=== PATIENT | female | born 1990 | race Caucasian/White ===

== ENCOUNTER → 2018-05-28 16:13 | Outpatient (CLI) | payer OTHER, SELFPAY | PROVIDERS: Visit Provider Obstetrics & Gynecology | DX: R30.0 Dysuria (principal); M54.9 Dorsalgia, unspecified; R10.2 Pelvic and perineal pain | CPT/HCPCS: 87086 ==

== ENCOUNTER → 2018-08-17 17:20 | Outpatient (CLI) | payer OTHER, SELFPAY | PROVIDERS: Visit Provider Urology | DX: N39.0 Urinary tract infection, site not specified (principal) | CPT/HCPCS: 87086; 87088 ==

== ENCOUNTER 2019-08-05 21:39 | Emergency (ER) | payer OTHER, SELFPAY ==
[2018-11-12 17:19] VITALS: BMI 31.8
[2019-08-05 21:40] VITALS: BP 154/104; PULSE 98; RESP 18; TEMP 36.9; O2SAT 100; BMI 35.5
--- NOTE | 2019-08-05 22:05 | ED.DCSUM_ITS ---
- ER Visit Summary Date of Service: 08/05/19 Chief Complaint: Hematuria and dysuria status post urethral biopsy History of Present Illness: The patient is a 28 F who self caths herself. She has had recent atypical cells so the [facility] urology department did a biopsy on Thursday. She had a catheter in for 2 days and then removed it since then she has had gross hematuria and self cathing herself. She denies any fever or chills. No purulent urine. Mild dysuria. She has had a history of multiple symptoms of dysuria in the past with many negative urine cultures. Physical Examination: Young female no acute distress vital signs stable afebrile. H EENT exam unremarkable. Lungs clear to auscultation. Heart regular rhythm no murmur. Abdomen soft nontender. Normal bowel sounds no peritoneal signs. Extremities moves all 4. Calves nontender. Neurologically she is awake alert with no focal motor deficits. 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 Treatment Plan: [] Disposition: Discharge Impression: [] This note was generated with [employer] dictation software. It may contain incorrect words, spelling, and punctuation that were not noted in review of the chart prior to signing ED Disposition - Plan for ED Patient: Referrals: [facility] Doctor,Out of [Primary Care Provider] -
[2019-08-05 23:42] LABS: Mucous, Urine 0 SEEN /hpf (<or=2+)
[2019-08-05 23:46] LABS: Glucose, Dipstick Normal (Normal); Ketone-Dipstick Negative (Negative); Leukocyte Esterase-Dipstick 500 /ul (Negative); Nitrite-Dipstick Negative (Negative); Occult Blood-Urine 250 /ul (Negative); Protein-Dipstick 30 mg/dl (Negative); Urine Bilirubin Dipstick Negative (Negative); Urine Clarity Cloudy (Clear); Urine Urobilinogen Normal (Normal)
[2019-08-05 23:50] LABS: Color, Urine SEE COMMENT BELOW (Yellow)
[2019-08-05 23:55] LABS: Red Blood Cells-Urine > 100 SEEN /hpf (0-5); Squamous Epithelial Cells - UA 0-5 SEEN /hpf (5-10)
[2019-08-05 23:56] LABS: White Blood Cells 25-50 SEEN /hpf (0-5)
[2019-08-05 23:57] LABS: Bacteria 3+ /hpf (None Seen)
[2019-08-05 23:58] LABS: Internal QC Validated? YES +Cl - CLEAR BKGD; Pregnancy, Urine Negative Negative
--- NOTE | 2019-08-06 00:07 | DCINST.ED_ITS ---
ED Disposition - Plan for ED Patient: Disposition: Home or Assisted Living Instructions: Bladder Infection, Female (Adult) Prescriptions: Cephalexin [Keflex] 500 mg PO Q6 #30 cap Prescription Printed Referrals: [facility] Doctor,Out of [NON-STAFF] - As soon as possible Additional Instructions: Urine has white cells and bacteria consistent with a possible urinary tract infection. You have had this multiple times in the past and many times her cultures handle turner to be negative. We will start to treat you as a possible urinary tract infection on Keflex 4 times a day for 1 week. And await the culture results. Follow-up with your urologist. They can evaluate the culture results and decide if you should continue on antibiotics.
[2019-08-06 00:25] VITALS: BP 148/92; PULSE 90; RESP 14; O2SAT 98
[2019-08-06] MEDS: Cephalexin 250 MG Capsule 500 MG PO (00:34)
[2019-08-06 00:35] VITALS: BP 134/79; PULSE 106; RESP 14; TEMP 37.9; O2SAT 100
== END 2019-08-06 00:36 | disposition home or self-care (01) ==
PROVIDERS: Emergency Provider Emergency Medicine
DX: N39.0 Urinary tract infection, site not specified (principal); R30.0 Dysuria
CPT/HCPCS: 81001; 81025; 87086; 87088; 87186; 99284; P9612

== ENCOUNTER 2020-06-18 10:39 | Emergency (ER) | payer BC, SELFPAY ==
[2020-06-18 10:39] VITALS: BP 137/90; PULSE 93; RESP 17; TEMP 36.3; O2SAT 98; BMI 37.0
--- NOTE | 2020-06-18 11:05 | CT_ITS ---
STUDY: CT BRAIN WITHOUT CONTRAST REASON FOR EXAM: Female, 29 years old. HEADACHE X 6 DAYS, TROUBLE TALKING, ?UTI RADIATION DOSAGE (If Supplied By Facility): CTDIvol = ( 44.99 ) mGy, DLP = ( 812.98 ) mGycm TECHNIQUE: Transaxial CT imaging of the brain was performed without administration of intravenous contrast material. Individualized dose optimization techniques were used for this CT. COMPARISON: Comparison is made with prior study dated 06/12/2010. FINDINGS: Normal soft tissue structures. Normal calvarium. Normal size ventricles and extra-axial spaces for the patient''s age. Normal white matter tracts of the cerebral hemispheres. Normal basal ganglia and thalami. Normal brainstem. Normal cerebellum. There is no intracranial hemorrhage. There are no findings of an acute ischemic infarction. Opacification of the right maxillary sinus. Mild mucosal thickening of the left maxillary sinus. Partial opacification of the ethmoid sinuses bilaterally. CT/Brain/Head without Contrast IMPRESSION: Sinusitis. Electronically Signed: Kali Kaba, at 12:59 EDT , Service support ,
--- NOTE | 2020-06-18 11:06 | EKG12_ITS ---
Test Reason : Blood Pressure : / mmHG Vent. Rate : 077 BPM Atrial Rate : 077 BPM P-R Int : 162 ms QRS Dur : 074 ms QT Int : 356 ms P-R-T Axes : 048 041 022 degrees QTc Int : 402 ms Normal sinus rhythm Normal ECG Confirmed by OSMAN MYERS, LUCRECIA ([id number]), scientific publications editor MARBELLA SHANNON ([id number]) on 06/19/2020 9:27:26 AM Referred By: SAGE Confirmed By:LUCRECIA BREWER MD
--- NOTE | 2020-06-18 11:06 | ED.VIS.GEN ---
History of Present Illness Chief Complaint: Headache Onset: Weeks - 1 Context: Gradual Onset Timing: Continuous, Waxes and wanes Quality: aching Location: bitemporal Current Severity: Moderate Maximum Severity: Moderate Worsened by: light Relieved by: nothing Narrative: Patient presenting with multiple complaints. She states for the past 4 weeks or so she has had menorrhagia, she has been to the [facility], they put her on control pills, she stopped taking it about 2 weeks ago and felt like since then the bleeding has improved however still worse/more than a typical menstruation for her, they catherine her blood about 1 week ago to make sure she was not anemic and check her thyroid and she states those test ended up okay. She has been having bilateral bitemporal headaches for like throbbing, retro-orbital, associated with blurry vision, nausea, photophobia, trouble mentating and thinking and sometimes trouble speaking, for about the past week. No thunderclap onset, gradual. She has never had headaches like this before. Denies any focal neurologic symptoms aside from the ones listed above. No arm numbness or weakness. No falls or injuries to her head recently. No near syncopal events. She has Fowlers syndrome and self caths in order to empty her bladder, has been having suprapubic pressure for the last several days, with bladder spasms and is concerned maybe she has another infection. She has a history of recurrent ones due to self cathing. She denies any new pains in her back. - Past Medical History (1) Lemos's syndrome Status: Chronic (2) Asthma Status: Chronic Past Medical History - Allergies and Home Meds Allergies/Adverse Reactions: Allergies avocado Allergy (Verified 06/18/20 10:39) Anaphylaxis the food Primary Care Physician: Chery Lester MD [Primary Care Provider] - Surgical History: - - c/s Smoking Status: Never smoker - Family History Maternal Family History: Reports: - - polysystic kidney disease in mother and grandmother Review of Systems General: Reports: Malaise. Denies: Chills, Fever, Sweats Eyes: Reports: Blurred Vision - bilaterally, - - Photophobia. Denies: Diplopia ENT: Denies: Bilateral ear pain, Rhinorrhea, Sore throat Cardiovascular: Denies: Chest pain, Palpitations Respiratory: Denies: Dyspnea, Cough, Dyspnea on exertion Gastrointestinal: Reports: Abdominal pain, Nausea. Denies: Vomiting, Diarrhea, Melena, Hematochezia Genitourinary: Denies: Dysuria, Hematuria, Frequency Musculoskeletal: Denies: Neck pain, Back pain, Swelling, Extremity Pain Skin: Denies: Rash, Wounds Neurological: Reports: Headache. Denies: Weakness, Numbness Physical Exam Vital Signs/Narrative: Vital Signs Temp Pulse Resp BP Pulse Ox 06/18/20 10:39 97.3 F L 93 17 137/90 H 98 Inital Vital Signs reviewed: Yes General: Well nourished, Well developed, Obese, No Acute Distress Head: Normocephalic, Atraumatic Eyes: Perrl, EOMI ENT: Moist mucous membranes, No rhinorrhea Neck: Supple, Nontender, No lymphadenopathy Cardiovascular: Regular rate, Regular rhythm, No murmurs Respiratory: No distress, CTA bilaterally, Chest nontender Abdomen: Soft, Nontender, Nondistended, Normal bowel sounds Back: Nontender, Normal Inspection. Negative for: CVA tenderness Extremities: Nontender, No edema Skin: Normal color, No rash, No Trauma Neurological: Alert, Oriented x3, Cranial nerves II-XII grossly intact, Normal Strength, Normal Sensation, Normal Gait, - - NIHSS 0. No aphasia. No dysarthria. Psychological: Normal affect, Normal Mood Diagnostic/Tx/Re-eval Impressions Brain CT 06/18/20 11:05 IMPRESSION: Sinusitis. Electronically Signed: Kali Pacogissellesilvestre, at 12:59 EDT , Service support , 06/18/20 11:05 CT Brain [Brain/Head without Contrast] [CT] Stat Laboratory Results 06/18/20 06/18/20 06/18/20 11:11 11:11 11:42 WBC 7.6 RBC 4.18 L Hgb 11.7 L Hct 36.4 L MCV 87.1 MCH 28.0 MCHC 32.1 RDW Std Deviation 45.2 H RDW Coeff of Parul 14.4 Plt Count 354 MPV 10.4 Immature Gran % (Auto) 0.300 Neut % (Auto) 60.3 Lymph % (Auto) 27.6 [place] % (Auto) 4.9 Eos % (Auto) 6.6 H Baso % (Auto) 0.3 Absolute Neuts (auto) 4.6 Absolute Lymphs (auto) 2.10 Nucleated RBC % 0 Sodium 139 Potassium 4.5 Chloride 109 H Carbon Dioxide 24.0 Anion Gap 6 BUN 14 Creatinine 1.11 H Estim Creat Clear Calc 69.38 Est GFR (MDRD) Af Amer 74 Est GFR (MDRD) Non-Af 61 BUN/Creatinine Ratio 12.6 Glucose 104 Calcium 9.2 Urine Color Urine Clarity Urine pH Ur Specific [place] Urine Protein Urine Glucose (UA) Urine Ketones Urine Occult Blood Urine Nitrite Urine Bilirubin Urine Urobilinogen Ur Leukocyte Esterase Urine RBC Urine WBC Ur Squamous Epith Cells Urine Bacteria Urine Mucus Urine Test Negative 06/18/20 11:42 WBC RBC Hgb Hct MCV MCH MCHC RDW Std Deviation RDW Coeff of Parul Plt Count MPV Immature Gran % (Auto) Neut % (Auto) Lymph % (Auto) [place] % (Auto) Eos % (Auto) Baso % (Auto) Absolute Neuts (auto) Absolute Lymphs (auto) Nucleated RBC % Sodium Potassium Chloride Carbon Dioxide Anion Gap BUN Creatinine Estim Creat Clear Calc Est GFR (MDRD) Af Amer Est GFR (MDRD) Non-Af BUN/Creatinine Ratio Glucose Calcium Urine Color Yellow Urine Clarity Clear Urine pH 6.0 Ur Specific [place] 1.015 Urine Protein Negative Urine Glucose (UA) Normal Urine Ketones Negative Urine Occult Blood Negative Urine Nitrite Negative Urine Bilirubin Negative Urine Urobilinogen Normal Ur Leukocyte Esterase 25 H Urine RBC 0 SEEN Urine WBC 0-5 SEEN Ur Squamous Epith Cells 0 SEEN Urine Bacteria 0 SEEN Urine Mucus 0 SEEN Urine Test - Medical Decision Making With CT showing sinusitis, it is possible this is causing her headaches. Her headache features are more like migraines. She was treated here with IV fluids, Reglan, Toradol and her headache resolved. The rest of her tests look good, no sign of urine infection, but we will treat her with an antibiotic empirically to see if that helps her sinusitis/headache anyway. Her blood counts are stable at this time she does not require blood transfusion, and advised to follow-up with her para professional with regards to her menorrhagia. ED Disposition - Plan for ED Patient: Disposition: Home or Assisted Living Diagnosis: Sinus headache, Sinusitis, Menorrhagia Instructions: ED Headache Sinus, ED Sinusitis Antibiotic Treatment Prescriptions: Amox/Clavulanate Tablet [Augmentin Tablet] 875 mg PO Q12H #14 tab Transmission Status: Pending to [facility] Metoclopramide [Reglan] 10 mg PO Q6H PRN #15 tab PRN Reason: Headache or nausea Transmission Status: Pending to [facility] Referrals: Chery Lester MD [Primary Care Provider] - 1 Week if not improving Gricelda Ryan MD [STAFF PHYSICIAN] - 1 Week if not improving
[2020-06-18 11:28] LABS: Absolute Neutrophil Count 4.6 X10^3/uL (2.0-7.7); Basophil# 0.02 X10^3/uL; Basophil% 0.3 % (0-1); Eosinophils% 6.6 % (0-5); Hematocrit 36.4 % (37-47); Hemoglobin 11.7 g/dL (12.0-15.0); Lymphocyte % 27.6 % (19-41); Mean Corp Hgb Conc 32.1 g/dL (32-36); Mean Corpuscular Volume 87.1 fL (81-99); Mean Platelet Vol. 10.4 fl (6.2-12.0); Monocyte# 0.37 X10^3/uL; Monocyte% 4.9 % (0-10); NRBC Flagged by Analyzer 0 % (0-5); Neutrophil # 4.59 X10^3/uL (2.7-7.7); Neutrophil % 60.3 % (47-70); Platelet Count 354 K/mm3 (150-450); RBC Distribution Width CV 14.4 % (11.6-14.6); RBC Distribution Width SD 45.2 fl (35.1-43.9); Red Blood Count 4.18 M/mm3 (4.2-5.4); White Blood Count 7.6 K/mm3 (4.4-11.0)
[2020-06-18 11:45] LABS: Anion Gap 6 (5-15); BUN 14 mg/dL (7-18); BUN/Creat Ratio 12.6 RATIO (10-20); Calcium,Total 9.2 mg/dL (8.5-10.1); Chloride 109 mmol/L (98-107); Creatinine, Serum 1.11 mg/dL (0.55-1.02); EST Glomerular Filtration Rate 61 mL/min (>60); Est Glom Filt Rate - Afr Amer 74 mL/min (>60); Estimated Creatinine Clearance 69.38 ml/min; Glucose 104 mg/dL (74-106); Potassium 4.5 mmol/L (3.5-5.1); Sodium Level 139 mmol/L (136-145)
[2020-06-18 11:50] LABS: Bacteria 0 SEEN /hpf (None Seen); Mucous, Urine 0 SEEN /hpf (<or=2+); Red Blood Cells-Urine 0 SEEN /hpf (0-5); Squamous Epithelial Cells - UA 0 SEEN /hpf (5-10)
[2020-06-18 11:56] LABS: Color, Urine Yellow (Yellow); Glucose, Dipstick Normal (Normal); Ketone-Dipstick Negative (Negative); Leukocyte Esterase-Dipstick 25 /ul (Negative); Nitrite-Dipstick Negative (Negative); Occult Blood-Urine Negative /ul (Negative); Protein-Dipstick Negative (Negative); Specific Gravity, Urine 1.015 (1.002-1.030); Urine Bilirubin Dipstick Negative (Negative); Urine Clarity Clear (Clear); Urine Urobilinogen Normal (Normal)
[2020-06-18 11:59] LABS: Internal QC Validated? YES +Cl - CLEAR BKGD; Pregnancy, Urine Negative Negative
[2020-06-18] MEDS: Ketorolac 30 MG/ML Syringe 15 MG IV (12:11)
[2020-06-18] MEDS: Metoclopramide 10 MG/2 ML Vial 5 MG IV (12:12)
[2020-06-18 12:21] LABS: White Blood Cells 0-5 SEEN /hpf (0-5)
[2020-06-18 14:12] VITALS: BP 113/75; RESP 17
== END 2020-06-18 14:13 | disposition home or self-care (01) ==
PROVIDERS: Emergency Provider Emergency Medicine; PCP Internal Medicine
DX: J32.9 Chronic sinusitis, unspecified (principal); N92.0 Excessive and frequent menstruation with regular cycle; N32.89 Other specified disorders of bladder; J45.909 Unspecified asthma, uncomplicated; E66.9 Obesity, unspecified; Z68.37 Body mass index [BMI] 37.0-37.9, adult; Z87.440 Personal history of urinary (tract) infections
CPT/HCPCS: 70450; 80048; 81001; 81025; 85025; 93005; 96361; 96374; 96375; 99283; J7040; A4216

== ENCOUNTER → 2020-06-24 09:37 | Outpatient (CLI) | payer BC, SELFPAY ==
[2020-06-18 10:39] VITALS: BMI 37.0
== END ==
PROVIDERS: PCP Internal Medicine; Referring Provider Nurse Practitioner Family; Visit Provider Nurse Practitioner Family
DX: R06.02 Shortness of breath (principal)
CPT/HCPCS: 87635; 94799; U0003

== ENCOUNTER 2020-06-25 14:55 | Emergency (ER) | payer BC, SELFPAY ==
[2020-06-25 14:56] VITALS: BP 128/78; PULSE 94; RESP 18; TEMP 36.3; O2SAT 100; BMI 37.7
--- NOTE | 2020-06-25 15:29 | EKG12_ITS ---
Test Reason : Blood Pressure : / mmHG Vent. Rate : 075 BPM Atrial Rate : 075 BPM P-R Int : 164 ms QRS Dur : 090 ms QT Int : 382 ms P-R-T Axes : 053 032 021 degrees QTc Int : 426 ms Normal sinus rhythm Normal ECG Confirmed by REGINO MYERS, SUSHANT ([id number]), writer editor MARBELLA SHANNON ([id number]) on 06/28/2020 11:19:12 AM Referred By: RUBEN Confirmed By:SUSHANT LACY MD
--- NOTE | 2020-06-25 16:27 | RAD_ITS ---
STUDY: X-RAY CHEST REASON FOR EXAM: Female, 29 years old. SOB TECHNIQUE: Single AP portable view of the chest. COMPARISON: 04/15/2016 FINDINGS: The lungs are clear and expanded. There is no demonstrated pleural abnormality. Normal size heart. Normal mediastinum and day. Normal visualized pulmonary arteries. Normal visualized aortic arch and descending thoracic aorta. Normal visualized thoracic spine. Normal visualized ribs, clavicles, and shoulders. There is no demonstrated abnormality of the visualized soft tissue structures of the upper abdomen. RAD/Chest 1 View (Portable) IMPRESSION: Normal x-ray examination of the chest. Electronically Signed: Kiran Pearce MD at 17:10 EDT Tel , Service support ,
[2020-06-25 16:28] VITALS: BP 118/74; PULSE 84; RESP 18; TEMP 36.6; O2SAT 97
--- NOTE | 2020-06-25 16:29 | ED.DCSUM_ITS ---
History of Present Illness Chief Complaint: Asthma Detail of Chief Complaint: Shortness of breath and clamminess Informant: Patient Onset: Today - The shortness of breath and clams venous occurred prior to arrival and reason she presented., Days Context: Sudden Onset Timing: Intermittent Quality: Shortness of breath Location: Respiratory Current Severity: - - Presently no symptoms Maximum Severity: Moderate Worsened by: Nothing history of asthma Relieved by: Nothing Associated Symptoms: Jitteriness after using inhaler Narrative: Patient is a 29-year-old female who presents with shortness of breath for 1 week. She is not on hormonal therapy. There is no history of VTE. She denies leg pain, swelling discoloration. She denies upper respiratory infectious symptoms. She is presently on prednisone. She did report mild nausea without vomiting or diarrhea. She denied pain. Prior similar symptoms: Yes Recent Illness/Hospitalization: Yes - Seen yesterday for respiratory symptoms - Past Medical History (1) Asthma Status: Chronic (2) Lemos's syndrome Status: Chronic (3) Seasonal allergies Status: Chronic Past Medical History - Allergies and Home Meds Allergies/Adverse Reactions: Allergies avocado Allergy (Verified 06/25/20 14:58) Anaphylaxis the food Primary Care Physician: Chery Lester MD [Primary Care Provider] - Prior records reviewed: Yes Surgical History: - - c/s Lives: Spouse/ Significant Other, With Family Smoking Status: Never smoker Alcohol: None Drugs: None - Family History Maternal Family History: Reports: - - polysystic kidney disease in mother and grandmother Review of Systems General: Reports: Malaise. Denies: Chills, Fever, Subjective, Sweats Eyes: Denies: Visual changes - bilaterally, Blurred Vision - bilaterally, Diplopia ENT: Denies: Bilateral ear pain, Rhinorrhea, Sore throat Cardiovascular: Denies: Chest pain, Palpitations Respiratory: Denies: Dyspnea, Cough, Dyspnea on exertion, Orthopnea, Paroxysmal nocturnal dyspnea Gastrointestinal: Denies: Abdominal pain, Nausea, Vomiting, Diarrhea, Melena, Hematochezia Genitourinary: Denies: Dysuria, Hematuria Musculoskeletal: Denies: Myalgias, Arthralgias, Swelling, Extremity Pain Skin: Denies: Rash, Wounds Neurological: Denies: Headache, Weakness Endocrine: Denies: Polyuria, Polydipsia Hematologic: Denies: Easy bruising, Easy bleeding Physical Exam Vital Signs/Narrative: Vital Signs Temp Pulse Resp BP Pulse Ox 06/25/20 14:56 97.4 F L 94 18 128/78 H 100 Inital Vital Signs reviewed: Yes General: Well nourished, Well developed, Obese, No Acute Distress Head: Normocephalic, Atraumatic Eyes: Perrl, EOMI ENT: Moist mucous membranes, No rhinorrhea Neck: Supple, Nontender Cardiovascular: Regular rate, Regular rhythm, No murmurs Respiratory: No distress, CTA bilaterally, Chest nontender Abdomen: Soft, Nontender, Nondistended, Normal bowel sounds Back: Nontender, Normal Inspection Extremities: Nontender, No edema Skin: Normal color, No rash Neurological: Alert, Oriented x3, Cranial nerves II-XII grossly intact, Normal Strength, Normal Sensation Psychological: Depressed Diagnostic/Tx/Re-eval Chest X-Ray - ED: 1 View, Read by ED Physician, Normal, Heart, Lungs, Mediastinum, Bony Structures, No Acute Disease, - - X-ray was interpreted by me at 1632 06/25/20 16:27 Chest 1 View (Portable) [RAD] Stat Impressions Chest X-Ray 06/25/20 16:27 IMPRESSION: Normal x-ray examination of the chest. Electronically Signed: Kiran Pearce MD at 17:10 EDT Tel , Service support , 06/25/20 16:27 Chest 1 View (Portable) [RAD] Stat Laboratory Results 06/25/20 06/25/20 16:25 16:25 WBC 13.8 H RBC 4.33 Hgb 11.7 L Hct 37.8 MCV 87.3 MCH 27.0 MCHC 31.0 L RDW Std Deviation 43.9 RDW Coeff of Parul 13.6 Plt Count 498 H MPV 10.3 Immature Gran % (Auto) 0.400 Neut % (Auto) 62.5 Lymph % (Auto) 28.9 [place] % (Auto) 7.2 Eos % (Auto) 0.6 Baso % (Auto) 0.4 Absolute Neuts (auto) 8.6 H Absolute Lymphs (auto) 3.98 Nucleated RBC % 0 Sodium 140 Potassium 3.5 Chloride 108 H Carbon Dioxide 26.0 Anion Gap 6 BUN 21 H Creatinine 1.07 H Estim Creat Clear Calc 71.97 Est GFR (MDRD) Af Amer 77 Est GFR (MDRD) Non-Af 64 BUN/Creatinine Ratio 19.6 Glucose 93 Calcium 8.9 White count is slightly elevated and most likely due to the fact that he is on high-dose prednisone presently. - EKG Initial EKG Interpretation: Sinus Rhythm - Sinus rhythm with a ventricular rate of 75. SC interval is 164 ms. QRS duration 90 ms. QT duration 382 ms. [place] is normal. The EKG is normal. - Medical Decision Making Patient is PERC negative. Chest x-ray was obtained to evaluate for pneumothorax, pneumonia versus exacerbation of asthma. ED Disposition - Plan for ED Patient: Disposition: Home or Assisted Living Diagnosis: Suspected 2019 novel coronavirus infection, Dyspnea Instructions: ED Dyspnea Referrals: Chery Lester MD [Primary Care Provider] - As Needed
[2020-06-25 16:30] VITALS: O2SAT 97
[2020-06-25 16:43] LABS: Anion Gap 6 (5-15); BUN 21 mg/dL (7-18); BUN/Creat Ratio 19.6 RATIO (10-20); Calcium,Total 8.9 mg/dL (8.5-10.1); Chloride 108 mmol/L (98-107); Creatinine, Serum 1.07 mg/dL (0.55-1.02); EST Glomerular Filtration Rate 64 mL/min (>60); Est Glom Filt Rate - Afr Amer 77 mL/min (>60); Estimated Creatinine Clearance 71.97 ml/min; Glucose 93 mg/dL (74-106); Potassium 3.5 mmol/L (3.5-5.1); Sodium Level 140 mmol/L (136-145)
[2020-06-25 16:48] LABS: Absolute Lymphocyte Count 3.98 X10^3/uL (0.83-4.51); Absolute Neutrophil Count 8.6 X10^3/uL (2.0-7.7); Basophil# 0.05 X10^3/uL; Basophil% 0.4 % (0-1); Eosinophil# 0.08 X10^3/uL; Eosinophils% 0.6 % (0-5); Hematocrit 37.8 % (37-47); Hemoglobin 11.7 g/dL (12.0-15.0); Lymphocyte # 3.98 X10^3/ul (4.0); Lymphocyte % 28.9 % (19-41); Mean Corpuscular Volume 87.3 fL (81-99); Mean Platelet Vol. 10.3 fl (6.2-12.0); Monocyte# 0.99 X10^3/uL; Monocyte% 7.2 % (0-10); NRBC Flagged by Analyzer 0 % (0-5); Neutrophil # 8.63 X10^3/uL (2.7-7.7); Neutrophil % 62.5 % (47-70); Platelet Count 498 K/mm3 (150-450); RBC Distribution Width CV 13.6 % (11.6-14.6); RBC Distribution Width SD 43.9 fl (35.1-43.9); Red Blood Count 4.33 M/mm3 (4.2-5.4); White Blood Count 13.8 K/mm3 (4.4-11.0)
[2020-06-25 17:26] VITALS: BP 128/81; PULSE 89; RESP 18; O2SAT 99
== END 2020-06-25 17:26 | disposition home or self-care (01) ==
LOC: ED 15:52
PROVIDERS: Emergency Provider Emergency Medicine; PCP Internal Medicine
DX: R06.02 Shortness of breath (principal); E66.9 Obesity, unspecified; Z68.37 Body mass index [BMI] 37.0-37.9, adult
CPT/HCPCS: 71045; 80048; 85025; 93005; 99283

== ENCOUNTER 2022-04-02 13:33 | Emergency (ER) | payer BC, SELFPAY ==
[2022-04-02 13:35] VITALS: BP 138/95; PULSE 70; RESP 16; TEMP 36.3; O2SAT 98; BMI 37.7
[2022-04-02 13:51] VITALS: BP 133/79; PULSE 70; RESP 14; O2SAT 100
--- NOTE | 2022-04-02 13:53 | EKG12_ITS ---
Test Reason : Blood Pressure : / mmHG Vent. Rate : 061 BPM Atrial Rate : 061 BPM P-R Int : 182 ms QRS Dur : 084 ms QT Int : 388 ms P-R-T Axes : 032 034 019 degrees QTc Int : 390 ms Normal sinus rhythm with sinus arrhythmia Normal ECG Confirmed by OSMAN MYERS, LUCRECIA ([id number]), editor book MARBELLA SHANNON ([id number]) on 04/07/2022 7:36:15 AM Referred By: TARAS Confirmed By:LUCRECIA BREWER MD
--- NOTE | 2022-04-02 13:55 | EX.ED.DYSGE1 ---
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 Prior . States since Thursday she has had nausea without vomiting. She went to an urgent care they did a work-up that was negative. Says she just does not feel well and has been fatigued. She denies chest pain or shortness of breath. At times feels like she might pass out but has not actually lost consciousness. Denies palpitations. Denies any significant abdominal pain. No dysuria. No fever. No cough or shortness of breath. Prior similar symptoms: No Recent Illness/Hospitalization: No PFSH PFSH Medical History Anemia asthma Hay fever history of surgery on urethra Knee pain Shortness of breath unexplained bruises Home Medications albuterol sulfate 1 - 2 puff INHALATION Q4H PRN PRN 12/16/15 [History Last Taken 08/05/19] amoxicillin-pot clavulanate 875 mg PO Q12H #14 tab 06/18/20 [Rx Last Taken Unknown] fexofenadine 60 mg PO DAILY 06/18/20 [History Last Taken Unknown] metoclopramide HCl 10 mg PO Q6H PRN #15 tab 06/18/20 [Rx Last Taken Unknown] Allergy/AdvReac Type Severity Reaction Status Date / Time avocado Allergy Anaphylaxis Verified 04/02/22 13:35 Social History Smoking Status: Never smoker alcohol intake: never ROS ROS ED ROS Narrative Fatigue. Nausea. Near syncope. Review of Systems ROS Unobtainable: Denies due to encephalopathy Constitutional Constitutional ED: Denies chills or fever(s) Eyes Eyes: Denies change in vision ENT ENT ED: Denies ear pain, rhinorrhea or sore throat Cardiovascular Cardiovascular: Denies chest pain, palpitations or racing heartbeat Respiratory/Chest Respiratory/Chest: Denies cough, dyspnea or sputum Gastrointestinal Gastrointestinal: Reports nausea; Denies abdominal pain, constipation, diarrhea, melena or vomiting Genitourinary Genitourinary ED: Denies dysuria or hematuria Musculoskeletal Musculoskeletal: Denies myalgias Integumentary Denies rash Neurologic Neurologic: Denies headache(s) Psychiatric Psychiatric: Denies depression Endocrine Endocrinology: Denies polyuria Allergic/Immunologic Allergic/Immunologic ED: Denies urticaria EXAM Physical Exam Narrative Exam Narrative: 31-year-old female no acute distress. Vital signs stable afebrile. Pulse ox 98% on room air no signs hypoxia. She seems emotionally stressed and anxious. H EENT exam unremarkable. Moist mucous membranes. Neck nontender no lymphadenopathy. Lungs clear to auscultation bilaterally. Heart regular rate and rhythm rate about 70 no murmur. Abdomen soft nontender normal bowel sounds no peritoneal signs. Moving all 4 extremities. Normal motor strength. Normal range of motion. No deformity. Nontender. Neurologically she is awake and alert with no focal motor deficits. NIH score is 0. Const Vital Signs: 04/02/22 13:35 04/02/22 13:51 04/02/22 15:38 Temperature 97.4 F L Temperature Source Temporal Pulse Rate 70 70 74 Respiratory Rate 16 14 16 Blood Pressure 138/95 H 133/79 H 134/87 H Blood Pressure Mean 109 97 102 Pulse Ox 98 100 99 Oxygen Delivery Method Room Air Room Air Room Air Positive well nourished, well developed and obese; Negative for cachectic, contractures or unkempt General Appearance ED: well developed and NAD; Negative for unkempt, cachectic, contractures, cyanotic, diaphoretic or pallor Nutritional Appearance: obese; Negative for cachectic HEENT Reports moist mucous membranes Negative for trauma or tenderness Eyes PERRL and EOMs intact bilaterally General Eye ED: Negative for pale conjunctiva or scleral icterus Neck no lymphadenopathy, supple and no JVD General: Negative for tenderness Chest Wall inspection of chest normal and palpation of chest normal Resp normal respiratory effort and clear to auscultation bilaterally Effort and Inspection: Negative for pain with movement Auscultation: Negative for rales, rhonchi or wheezes Cardio regular rate, regular rhythm, S1 normal heart sound, S2 normal heart sound and no murmurs GI normal to inspection, nondistended, normoactive bowel sounds, non-tender, non-distended and no masses Inspection: Negative for abdominal distention Auscultation: normoactive bowel sounds Palpation: soft; Negative for tender, guarding or rebound tenderness present Back/Spine no CVA tenderness General Back: Negative for CVA tenderness Cervical Spine: Negative for cervical spine tenderness Thoracic Spine / Upper Back: Negative for thoracic spinal tenderness or paraspinal muscle tenderness Extremity normal to inspection General Extremety ED: Negative for edema or tenderness General Extremity: Negative for edema Neuro oriented x3 Sensorium / Orientation: alert; Negative for orientation impaired, lethargic or stuporous Motor Exam: strength 5/5 throughout; Negative for general weakness Psych mental status grossly normal Appearance: Negative for unkempt Attitude: No agitated Mood & Affect: Negative for depressed, anxious or tearful Skin no rashes or lesions noted and no wounds General Skin Exam: elasticity normal; Negative for jaundice or pallor Rashes: No rashes noted MDM MDM MDM Narrative Medical decision making narrative: 31-year-old with nausea and near syncope. Exam benign. Labs, x-ray and EKG will be obtained. Repeat exam at 3:53 PM patient is doing well. Exam benign. I went over all test results with the patient and family. Patient to be discharged to home. Lab Data Attestation: I reviewed the patient's lab results. Lab results narrative: CBC normal white count of 10. H&H of 13 and 43. Platelets 338. Electrolytes gap of 4 normal BUN and creatinine. Normal glucose 95. Serum test negative. Urinalysis negative. Chest x-ray negative. Labs: Laboratory Results - last 24 hr 04/02/22 04/02/22 04/02/22 13:57 13:57 13:57 WBC 10.0 RBC 5.00 Hgb 13.8 Hct 43.3 MCV 86.6 MCH 27.6 MCHC 31.9 L RDW Std Deviation 42.0 RDW Coeff of Parul 13.3 Plt Count 338 MPV 10.3 Immature Gran % (Auto) 0.300 Neut % (Auto) 58.3 Lymph % (Auto) 30.9 Sebastian % (Auto) 7.3 Eos % (Auto) 2.8 Baso % (Auto) 0.4 Absolute Neuts (auto) 5.8 Absolute Lymphs (auto) 3.08 Nucleated RBC % 0 Sodium 138 Potassium 4.0 Chloride 105 Carbon Dioxide 29.0 Anion Gap 4 L BUN 14 Creatinine 0.84 Estim Creat Clear Calc 90.01 Est GFR (MDRD) Af Amer 100 Est GFR (MDRD) Non-Af 83 BUN/Creatinine Ratio 16.6 Glucose 95 Calcium 9.3 Serum , Qual NEGATIVE Urine Color Urine Clarity Urine pH Ur Specific [place] Urine Protein Urine Glucose (UA) Urine Ketones Urine Occult Blood Urine Nitrite Urine Bilirubin Urine Urobilinogen Ur Leukocyte Esterase 04/02/22 15:30 WBC RBC Hgb Hct MCV MCH MCHC RDW Std Deviation RDW Coeff of Parul Plt Count MPV Immature Gran % (Auto) Neut % (Auto) Lymph % (Auto) Sebastian % (Auto) Eos % (Auto) Baso % (Auto) Absolute Neuts (auto) Absolute Lymphs (auto) Nucleated RBC % Sodium Potassium Chloride Carbon Dioxide Anion Gap BUN Creatinine Estim Creat Clear Calc Est GFR (MDRD) Af Amer Est GFR (MDRD) Non-Af BUN/Creatinine Ratio Glucose Calcium Serum , Qual Urine Color Straw Urine Clarity Clear Urine pH 6.0 Ur Specific [place] 1.010 Urine Protein Negative Urine Glucose (UA) Normal Urine Ketones Negative Urine Occult Blood Negative Urine Nitrite Negative Urine Bilirubin Negative Urine Urobilinogen Normal Ur Leukocyte Esterase 25 H Radiography Chest X-Ray - ED: 1 View, Read by ED Physician, Read by Radiologist, Normal, Heart, Lungs, Mediastinum, Bony Structures and No Acute Disease Diagnostic Testing: Clinical Impression(s) from Imaging Studies Chest X-Ray 04/02/22 14:05 IMPRESSION: Normal x-ray examination of the chest. Electronically Signed: Kali Kaba MD at 14:49 EDT Reading Location ID and State: [address] [place] [id number] , Service support , Chest x-ray, portable, single view shows no acute abnormality. Normal cardiac silhouette. Normal mediastinum. Normal lungs. Rhythm Strip Rhythm Strip: Sinus Rhythm Rate: 61 Ectopy: None EKG Initial EKG: Attestation: I personally reviewed and interpreted this EKG as follows: Interpretation: Sinus Rhythm, No Acute Injury Pattern and Sinus Arrythmia Comments: Normal sinus rhythm rate of 61 no acute signs of CO or ischemia. Discharge Plan Triage Chief Complaint: Nausea/Vomiting ED Provider: Tommy Stephenson Dx/Rx/DC Orders Clinical Impression: Nausea, Near syncope Instructions: ED Near-Fainting, Uncertain Cause Prescriptions: No Action albuterol sulfate 1 INHALER inhaler 1 - 2 puff INHALATION Q4H PRN PRN (Reason: Asthma) RF: 0 fexofenadine 60 MG tablet 60 mg PO DAILY RF: 0 metoclopramide HCl 10 MG tablet 10 mg PO Q6H PRN (Reason: Headache or nausea) Qty: 15 RF: 0 amoxicillin-pot clavulanate 875 MG tablet 875 mg PO Q12H Qty: 14 RF: 0 Primary Care Provider: Chery Lester Referrals: Chery Lester MD [Primary Care Provider] - 3-5 Days if not improving Activity Restrictions/Additional Instructions: Plenty of fluids and rest. Follow-up with your primary care physician. Today all your labs were normal. Including EKG, chest x-ray, electrolytes, kidney function and blood counts. Urinalysis and test were negative also. Disposition Disposition: Home, Self Care
[2022-04-02 14:04] LABS: Absolute Lymphocyte Count 3.08 X10^3/uL (0.83-4.51); Absolute Neutrophil Count 5.8 X10^3/uL (2.0-7.7); Basophil# 0.04 X10^3/uL; Basophil% 0.4 % (0-1); Eosinophil# 0.28 X10^3/uL; Eosinophils% 2.8 % (0-5); Hematocrit 43.3 % (37-47); Hemoglobin 13.8 g/dL (12.0-15.0); Lymphocyte # 3.08 X10^3/ul (0.83-4.51); Lymphocyte % 30.9 % (19-41); Mean Corp Hgb Conc 31.9 g/dL (32-36); Mean Corpuscular Hgb 27.6 pg (27.0-32.0); Mean Corpuscular Volume 86.6 fL (81-99); Mean Platelet Vol. 10.3 fl (6.2-12.0); Monocyte# 0.73 X10^3/uL; Monocyte% 7.3 % (0-10); NRBC Flagged by Analyzer 0 % (0-5); Neutrophil # 5.82 X10^3/uL (2.7-7.7); Neutrophil % 58.3 % (47-70); Platelet Count 338 K/mm3 (150-450); RBC Distribution Width CV 13.3 % (11.6-14.6)
--- NOTE | 2022-04-02 14:05 | RAD_ITS ---
STUDY: X-RAY CHEST REASON FOR EXAM: Female, 31 years old. Near syncope TECHNIQUE: Single AP portable view of the chest. COMPARISON: Comparison is made with prior study 06/25/2020. FINDINGS: EKG electrodes are seen. The lungs are clear and expanded. There is no demonstrated pleural abnormality. Normal size heart. Normal mediastinum and day. Normal visualized pulmonary arteries. Normal visualized aortic arch and descending thoracic aorta. Normal visualized thoracic spine. Normal visualized ribs, clavicles, and shoulders. There is no demonstrated abnormality of the visualized soft tissue structures of the upper abdomen. RAD/Chest 1 View (Portable) IMPRESSION: Normal x-ray examination of the chest. Electronically Signed: Kali Kaba MD at 14:49 EDT ,
[2022-04-02] MEDS: 0.9% Normal Saline 1,000 ML 1000 ML IV (14:07)
[2022-04-02 14:14] LABS: Internal QC Validated? YES +Cl - CLEAR BKGD; Pregnancy, Serum, hCG Quali. NEGATIVE Negative
[2022-04-02 14:19] LABS: Anion Gap 4 (5-15); BUN 14 mg/dL (7-18); BUN/Creat Ratio 16.6 RATIO (10-20); Calcium,Total 9.3 mg/dL (8.5-10.1); Chloride 105 mmol/L (98-107); Creatinine, Serum 0.84 mg/dL (0.55-1.02); EST Glomerular Filtration Rate 83 mL/min (>60); Est Glom Filt Rate - Afr Amer 100 mL/min (>60); Estimated Creatinine Clearance 90.01 ml/min; Glucose 95 mg/dL (74-106); Sodium Level 138 mmol/L (136-145)
[2022-04-02 15:38] VITALS: BP 134/87; PULSE 74; RESP 16; O2SAT 99
[2022-04-02 15:40] LABS: Mucous, Urine 0 SEEN /hpf (<or=2+)
[2022-04-02 15:43] LABS: Color, Urine Straw (Yellow); Glucose, Dipstick Normal (Normal); Ketone-Dipstick Negative (Negative); Leukocyte Esterase-Dipstick 25 /ul (Negative); Nitrite-Dipstick Negative (Negative); Occult Blood-Urine Negative /ul (Negative); Protein-Dipstick Negative (Negative); Urine Bilirubin Dipstick Negative (Negative); Urine Clarity Clear (Clear); Urine Urobilinogen Normal (Normal)
[2022-04-02 16:29] LABS: Bacteria RARE /hpf (None Seen); Red Blood Cells-Urine 25-50 SEEN /hpf (0-5); Squamous Epithelial Cells - UA 0-5 SEEN /hpf (5-10); White Blood Cells 5-10 SEEN /hpf (0-5)
== END 2022-04-02 16:30 | disposition home or self-care (01) ==
PROVIDERS: Emergency Provider Emergency Medicine; PCP Internal Medicine; Visit Provider Emergency Medicine
DX: R11.2 Nausea with vomiting, unspecified (principal); R55 Syncope and collapse; E66.9 Obesity, unspecified; Z68.37 Body mass index [BMI] 37.0-37.9, adult
CPT/HCPCS: 71045; 80048; 81001; 84703; 85025; 93005; 99284

== ENCOUNTER 2022-07-24 13:28 | Day surgery (SDC) | payer BC, SELFPAY ==
--- NOTE | 2022-07-23 16:47 | PCM.HP.BLA ---
History and Physical Date of Admission: 07/24/22 HPI: The patient is a 31 year old female presenting for pre-operative visit. She is scheduled for Hysteroscopy D&C and polyp resection and IUD insertion, for menorrhagia, endometrial polyps on 07/24/22. Procedure discussed along with risks, benefits and complications. Other alternatives discussed for management. Consent form signed? Yes. ? ? PAST MEDICAL HISTORY PAST MEDICAL HISTORY Diagnosis Date ? Allergic rhinitis due to other allergen ? ? Excessive or frequent menstruation ? ? Heavy periods ? Lemos's syndrome ? ? Other kyphoscoliosis and scoliosis ? ? Unspecified asthma(493.90) ? ? 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 ? PAST SURGICAL HISTORY PAST SURGICAL HISTORY Procedure Laterality Date ? SECTION HX ? 2015 ? CYSTOSCOPY ? 2017 ? biopsy of urethral growth ? PAST SURGICAL HISTORY OF ? 06/2019 ? Resection bladder neck due to urethral stricture ? PRQ IMPLTJ NEUROSTIM ELTRD SACRAL NRVE W/IMAGING Right 11/2019 ? ? ? CURRENT MEDICATIONS Current Outpatient Medications Medication Sig Dispense Refill ? Ferrous Gluconate (FERGON) 324 mg (38 mg iron) tablet Take 325 mg by mouth. ? ? ? norethindrone (AYGESTIN) 5 mg tablet Take 1 tablet by mouth as directed. 1 tablet 3 times daily until bleeding stops then twice daily for 2 days then 1 tablet daily for 2 days. 30 tablet 0 ? ergocalciferol 50,000 unit capsule (VITAMIN D2, DRISDOL) Take 1 capsule by mouth one time a week. 12 capsule 3 ? norethindrone (AYGESTIN) 5 mg tablet Take 1 tablet by mouth as directed. 1 tablet 3 times daily until bleeding stops then twice daily for 2 days then 1 tablet daily for 2 days. 30 tablet 0 ? albuterol HFA (PROAIR HFA) 90 mcg/actuation inhaler Inhale 2 Puffs as instructed every 4 hours as needed. 8 g 0 ? cranberry fruit concentrate (AZO CRANBERRY ORAL) Take by mouth once daily. ? ? ? fexofenadine (DAGO) 60 mg tablet Take 1 tablet by mouth once daily. ? ? ? No current facility-administered medications for this visit. ? ? ALLERGIES: Avocado, Environmental [Other], and Tussin [Pseudoephedrine-Dm] ? PERSONAL HISTORY: SOCIAL HISTORY Social History ? Tobacco Use ? Smoking status: Never ? Smokeless tobacco: Never ? Tobacco comments: ? ? Parents smoked in childhood home. No ETS in current home. Vaping Use ? Vaping Use: Never used Substance Use Topics ? Alcohol use: Not Currently ? ? Comment: Rare ? Drug use: No ? FAMILY HISTORY: FAMILY HISTORY FAMILY HISTORY Problem Relation Age of Onset ? Thyroid Mother ? ? other (kidney disease) Mother ? ? Diabetes Father ? ? borderline ? other (Lung cancer) Father ? ? with mets ? other (Bone cancer) Father ? ? No Known Problems Sister ? ? No Known Problems Sister ? ? No Known Problems Brother ? ? Arthritis Maternal Grandmother ? ? Cancer Maternal Grandmother ? ? colon ? other (kidney disease) Maternal Grandmother ? ? No Known Problems Maternal Grandfather ? ? Leukemia Paternal Grandmother ? ? Diabetes Paternal Grandfather ? ? Cancer Paternal Grandfather ? ? unknown kind ? No Known Problems Daughter ? ? ? REVIEW OF SYMPTOMS: GENERAL: denies fevers or chills ENDOCRINOLOGY: has not been on steroids Cardiology : denies palpitations or chest pain Respiratory: denies SOB or cough Hematology: denies history of prolonged bleeding or easy bruising or VTE Allergy: Denies history of personal or family history of allergy to anesthesia PHYSICAL EXAMINATION: ? VITALS: Blood pressure 124/72, pulse 71, resp. rate 18, height 5' 6 (1.676 m), weight 237 lb (107.5 kg), last menstrual period 07/03/2022, SpO2 98 %. ? GENERAL: The patient is well nourished, well hydrated in no acute distress. , The patient is oriented to time, place, and person. NECK: Supple. No lynphadenopathy, normal thyroid, no thyromegaly. LUNGS: Clear to auscultation bilaterally. no wheezes, rhonchi or rales HEART: Regular rate and rhythm, Normal heart sounds, and No murmurs or gallops ? IMPRESSION: AUB, endometrial polyps ? PLAN: The risks/benefits/alternatives and personal involved for the planned hysteroscopy D&C with endometrial polyp resection and IUD insertion were reviewed with the patient. Her questions were answered to her satisfaction and she desires to proceed. Consent was signed. I reviewed with her postop instructions and expectations. ? ? I have reviewed and updated past medical and surgical history, medications and allergies Assessment & Plan Assessment/Plan (1) Abnormal uterine bleeding (AUB): (2) Endometrial polyp: (3) Endocervical polyp:
[2022-07-24] VITALS (7 sets, daily range): BP systolic 123–148; BP diastolic 75–100; PULSE 75–97; RESP 16–18; TEMP 36.1–36.5; O2SAT 97–100; BMI 37.4
--- NOTE | 2022-07-24 | EMB_PTH ---
PATIENT: RAJINDERJANUARY ART [place] [facility] [facility] [place][id number] AGE/SX: 31/F ROOM: RE07/24/[address]: Dr. Gricelda Ryan MD : 1990 BED: DIS: 07/24/2022 SPEC #: [id number] RECD: 07/25/22 10:24 STATUS: BENITEZ KATHY #: [id number] FAIZAN: 07/24/22 00:[address]: Gricelda Ryan DEPT: SURGICAL PATHOLOGY RECD BY: Kehinde Mayer ENTERED: 07/25/22 10:24 SP TYPE: ENDOM BX/C NANDO DR: Dr. Chery Lester MD Tissues: Endometrium, NOS Procedures: Surgery Specimen Level IV HEADER OPERATION: Hysteroscopy, D & C Symphion, Mirena IUD insertion, endometrial PRE-OP DIAGNOSIS: Menorrhagia, endometrial polyps TISSUE SUBMITTED: Endometrial curettings MICROSCOPIC DIAGNOSIS Endometrial curettings: Secretory endometrium with glandular and stromal breakdown. Focal exogenous hormone effects. ALICJA:eugenie 07/28/2022 MICROSCOPIC DESCRIPTION Slides are reviewed. GROSS DESCRIPTION Received in fixative is one container labeled with the patient's name and designated endometrial curettings. The specimen consists of multiple fragments of swanson hemorrhagic soft tissue that in aggregate measure 5 x 3 x 0.2 cm. The entire specimen is submitted in two cassettes. / ALICJA:eugenie 07/25/2022 TC:5 CPT: 00955
[2022-07-24 14:02] LABS: Internal QC Validated? YES +Cl - CLEAR BKGD
[2022-07-24] MEDS: Lactated Ringers 1,000 ML 15 ML IV (14:03)
[2022-07-24 14:05] LABS: Pregnancy, Urine Negative Negative
[2022-07-24] MEDS: Ketorolac 30 MG/ML Syringe IV (14:14)
[2022-07-24] MEDS: Acetaminophen 500 MG Tablet 1000 MG PO (14:14)
--- NOTE | 2022-07-24 15:40 | DCINST_ITS ---
Discharge Instructions Diet Discharge Diet: No restrictions Activity Discharge Activity: May Drive (tomorrow) and May Shower May resume sexual activity in: 1 week Lifting Restrictions: none Dressing / Incision Call your doctor if your incision/area has: Sudden Increased Bleeding and Foul Smelling Discharge Call your doctor if you observe: Fever of 101 or Higher and Using more than 1 pad per hour (for 2 hrs in a row) Follow Up Care Please Follow Up With: Gricelda Ryan MD When: You do not need a postop visit. We will call you with your pathology. Contact the office as needed for a follow up if heavy bleeding or other concerns. Call [phone] to make an appointment or with any concerns. Test Results: Test results from this visit will be discussed in further detail at your follow- up appointment, if applicable. Discharge Plan Admission Primary Reason for Your Visit: Hysteroscopy with D&C and removal of polyps and Mirena IUD insertion Attending Provider: Gricelda Ryan Primary Care Provider: Chery Lester Discharge Orders/Prescriptions Prescriptions: No Action albuterol sulfate 1 INHALER inhaler 1 - 2 puff INHALATION Q4H PRN PRN (Reason: Asthma) fexofenadine 60 MG tablet 60 mg PO DAILY ferrous sulfate 325 mg (65 mg iron) Tablet 325 mg PO MOWEFR ergocalciferol (vitamin D2) 1,250 mcg (50,000 unit) capsule 50,000 unit PO WE Label Comments: TAKE 1 CAPSULE BY MOUTH ONCE A WEEK Azo Cranberry 250 mg Tablet,Chewable 500 mg PO DAILY Referrals / Follow Up: Chery Lester MD [Primary Care Provider] - Disposition Disposition (needs filled in before D/C Order can be placed): Home, Self Care
--- NOTE | 2022-07-24 15:42 | OP.PCM_ITS ---
Problems Associated Problem List Diagnoses (1) Endocervical polyp: (2) Endometrial polyp: (3) Abnormal uterine bleeding (AUB): Report of Operation Date of Procedure: 07/24/22 Pre-Operative Diagnosis: AUB, endocervical polyp, endometrial polyp Post-Operative Diagnosis: same Surgery/Procedure Performed:: Hysterosocpy D&C with polyp resection and IUD insertion Description of Surgical Findings:: endometrial and endocervical polyp Surgeon: Gricelda Ryan manager quantitative: None Type of Anesthesia: MAC/Supplemental/Local Anesthesiologist: Chanelle Santizo Special Medications: none Specimen's removed: endometrial curettings and polyp Drains: none Estimated Blood Loss (mL): 10 Fluids Replaced: 500 Description of Procedure: The patient was taken to the OR where she was prepped and draped in dorsal lithotomy position. The weighted speculum was placed in the vagina and the anterior lip of the cervix was grasped with a single-tooth tenaculum. A paracervical block was administered with true clear. The cervix was dilated serially with Hegar dilators. The Symphion hysteroscope was placed into the uterine cavity and the above findings were noted. Bilateral tubal ostia [were] identified. The hysteroscope was removed. The resection device was inserted and it was used to resect the endometrial and endocervical polyps and do a visual D&C of the endometrial cavity. The instruments were removed from the vagina. The specimen was handed off and sent to pathology. The Mirena IUD was readied and inserted to the fundus in the usual sterile fashion. The strings were cut to 3 cm. All sponge and needle counts were correct. Vaginal sweep was performed by me. The patient was awakened and taken to the recovery room in stable condition. Calculated hysteroscopic fluid deficit is 950 cc of normal saline Grafts/Implants Used: Mirena IUD Lot [id number] exp 07/2024 Procedure Start Time: 15:55 Procedure Stop Time: 16:05 Complications none Admit VTE Documentation VTE Present on Admission: No VTE Mechan Device Prophylaxis: SCD's VTE Pharm Prophylaxis ordered?: No Reason prophylaxis not ordered:: Procedure Not Indicated
[2022-07-24] MEDS: Lidocaine 1% /Epi 1:100 (20ml) 20 ML Vial (16:05)
== END 2022-07-24 17:41 | disposition home or self-care (01) ==
LOC: SDC 13:31 → AC 13:31
PROVIDERS: Anesthesiology; PCP Internal Medicine; Referring Provider Obstetrics & Gynecology; Visit Provider Obstetrics & Gynecology
PROC: 0UB98ZZ Excision of Uterus, Via Natural or Artificial Opening Endoscopic (ICD-10-PCS; CPT 58558; principal; 2022-07-24 14:45)
DX: N93.9 Abnormal uterine and vaginal bleeding, unspecified (principal); N84.0 Polyp of corpus uteri; N84.1 Polyp of cervix uteri; Z30.430 Encounter for insertion of intrauterine contraceptive device
CPT/HCPCS: 58558; 58300; 00952; 81025; 88305; J7120; J2405